=== PATIENT | male | born 1985 | race Caucasian/White ===

== ENCOUNTER 2017-03-15 09:48 | Emergency (ER) | payer OTHER ==
[2017-03-15 09:55] VITALS: BP 133/79; PULSE 83; RESP 16; TEMP 97.6
[2017-03-15] MEDS ORDERED: DIPH,PERTUS(ACELL)TETVAC-LF 0.5 ML VIAL IM ONE (09:59)
--- NOTE | 2017-03-15 10:24 | ED ---
Wound/Laceration HPI - General Chief Complaint: Wound/Laceration Stated Complaint: IHS-Finger Laceration Time Seen by Provider: 03/15/17 09:58 Source: patient, RN notes reviewed Mode of arrival: ambulatory Limitations: no limitations - History of Present Illness Initial Comments: 31-year-old male presents emergency Department chief complaint left hand laceration. Patient states he cut his left hand fifth digit. Patient states that he was trimming a tree while he was up and bucket lift. Patient states that the branch above it his head causing him to Dr. down. Patient states that his hand brushed against the saw. Patient states that he is unsure when his last tetanus was. Patient states she has full range of motion of his left hand fifth digit. Denies any paresthesias. Patient is left-hand dominant. - Related Data Previous Rx's Medication Instructions Recorded Acetaminophen-Codeine 300-30mg 1 each PO Q6H PRN #20 tablet 08/07/15 [Tylenol #3] Ofloxacin 0.3% Ophth Soln [Ocuflox 1 - 2 drops BOTH EYES QID 7 Days 08/07/15 Ophth Soln] Cephalexin [Keflex] 500 mg PO Q6HR #28 cap 03/15/17 Allergies Allergy/AdvReac Type Severity Reaction Status Date / Time No Known Allergies Allergy Verified 03/15/17 09:55 Review of Systems ROS Statement: Those systems with pertinent positive or pertinent negative responses have been documented in the HPI. ROS Other: All systems not noted in ROS Statement are negative. Past Medical History Past Medical History: No Reported History History of Any Multi-Drug Resistant Organisms: None Reported Past Surgical History: No Surgical Hx Reported Past Psychological History: No Psychological Hx Reported Smoking Status: Current every day smoker Past Alcohol Use History: Rare Past Drug Use History: None Reported General Exam Limitations: no limitations General appearance: alert, in no apparent distress Respiratory exam: Present: normal lung sounds bilaterally. Absent: respiratory distress, wheezes, rales, rhonchi, stridor Cardiovascular Exam: Present: regular rate, normal rhythm, normal heart sounds. Absent: systolic murmur, diastolic murmur, rubs, gallop, clicks Extremities exam: Present: other (Left hand fifth digit there are multiple irregular lacerations larges 1 cm with multiple 0.5 cm lacerations with total length of 3 cm patient has no tendon involvement patient full-strength neurovascular intact) Course Vital Signs 03/15/17 09:53 Temperature 97.6 F Pulse Rate 83 Respiratory 16 Rate Blood Pressure 133/79 O2 Sat by Pulse 98 Oximetry Procedures - Laceration Laceration #1 Consent Obtained: verbal consent Site: hand (Left hand fifth digit) Size (cm): 3 (Multiple lacerations) Description: irregular, contaminated Depth: simple, single layer Anesthetic Used: lidocaine 1%, without epi Anesthesia Technique: local infiltration Amount (mls): 4 Pre-repair: wound explored, irrigated extensively, deep structures intact Type of Sutures: nylon Size of Sutures: 4-0 Number of Sutures: 10 Technique: simple, interrupted Patient Tolerated Procedure: well, no complications Medical Decision Making - Medical Decision Making 31-year-old male presented for left hand fourth digit finger lacerations. Patient's lacerations were closed using sutures. Patient tolerated well. Patient will be placed on light duty of left hand and follow-up with workman's comp. Return parameters were discussed Disposition Clinical Impression: Finger laceration Disposition: HOME SELF-CARE Condition: Stable Instructions: Finger Laceration (ED) Additional Instructions: Wash the wound twice daily with soap and water. Have sutures removed in 10 days. Keep the wound clean. Please return to the Emergency Department if symptoms worsen or any other concerns. Prescriptions: Cephalexin [Keflex] 500 mg PO Q6HR #28 cap Referrals: Ric Luna DO [Primary Care Provider] - 1-2 days Time of Disposition: 10:24
== END 2017-03-15 10:32 | disposition home or self-care (01) ==
LOC: EC 09:48
DX: S61.217A Laceration without foreign body of left little finger without damage to nail, initial encounter (principal); Z23 Encounter for immunization; F17.200 Nicotine dependence, unspecified, uncomplicated; W29.3XXA Contact with powered garden and outdoor hand tools and machinery, initial encounter
CPT/HCPCS: 12002; 90471; 90715; 99282

== ENCOUNTER 2017-12-07 21:17 | Emergency (ER) | payer OTHER ==
[2017-12-07] MEDS ORDERED: PROPARACAINE 0.5% OPHTH DROPS 15 ML BTL LEFT EYE STA (21:39)
--- NOTE | 2017-12-07 22:22 | ED ---
Eye Problem HPI - General Chief complaint: Eye Problems Stated complaint: FB/Eye Time Seen by Provider: 12/07/17 21:36 Source: patient, RN notes reviewed Mode of arrival: ambulatory Limitations: no limitations - History of Present Illness Initial comments: This is a 32-year-old male who presents to the emergency department with chief complaint of left eye pain. Patient states that at 9 AM this morning he was grinding metal and felt like a piece of it got stuck in his eye. He states that his eye is painful and red and reports photophobia. Denies any itchiness or vision changes. States that when he woke from a nap the pain was worse so presented to the emergency department. Patient denies any other injuries. Currently rates pain as 3/10. Denies fever, chills, chest pain, shortness of breath, abdominal pain, nausea or vomiting, constipation or diarrhea, dysuria or hematuria, numbness or tingling, headache or vision changes. - Related Data Previous Rx's Medication Instructions Recorded Acetaminophen-Codeine 300-30mg 1 each PO Q6H PRN #20 tablet 08/07/15 [Tylenol #3] Ofloxacin 0.3% Ophth Soln [Ocuflox 1 - 2 drops BOTH EYES QID 7 Days 08/07/15 Ophth Soln] ml Cephalexin [Keflex] 500 mg PO Q6HR #28 cap 03/15/17 Tobramycin 0.3% Ophth Soln [Tobrex 1 drop LEFT EYE Q4H 5 Days 12/07/17 0.3% Ophth Soln] Allergies Allergy/AdvReac Type Severity Reaction Status Date / Time No Known Allergies Allergy Verified 12/07/17 21:27 Review of Systems ROS Statement: Those systems with pertinent positive or pertinent negative responses have been documented in the HPI. ROS Other: All systems not noted in ROS Statement are negative. Past Medical History Past Medical History: No Reported History History of Any Multi-Drug Resistant Organisms: None Reported Past Surgical History: No Surgical Hx Reported Past Psychological History: No Psychological Hx Reported Smoking Status: Current every day smoker Past Alcohol Use History: Rare Past Drug Use History: None Reported General Exam - General Exam Comments Initial Comments: General: Awake and alert, well-developed; in no apparent distress. HEENT: Head atraumatic, normocephalic. Pupils are equal, round and reactive to light. Extraocular movements intact. Large corneal abrasion at approximately 1: 00 and 2:00 in relation to left iris. No evidence of foreign body. Oropharynx moist without erythema or exudate. Neck: Supple. Normal ROM. Cardiovascular: Regular rate and rhythm. No murmurs, rubs or gallops. Chest symmetrical. Respiratory: Lungs clear to auscultation bilaterally. No wheezes, rales or rhonchi. Normal respiratory effort with no use of accessory muscles. Musculoskeletal: Normal ROM, no tenderness bilateral upper and lower extremities. Ambulating normally. Skin: [place], warm and dry without rashes or lesions. Neurological: Alert and oriented x3. CN II-XII grossly intact. Speech is fluent and answers are appropriate. No focal neuro deficits. Psychiatric: Normal mood and affect. No overt signs of depression or anxiety noted. Limitations: no limitations Course Vital Signs 12/07/17 21:28 Temperature 97.8 F Pulse Rate 88 Respiratory 18 Rate Blood Pressure 125/79 O2 Sat by Pulse 99 Oximetry Medical Decision Making - Medical Decision Making This is a 32-year-old male who presents to emergency department with chief complaint of left eye pain and foreign body sensation. Physical examination and fluorescein staining reveal a large corneal abrasion without evidence of a foreign body. I had a fellow PA also examine patient's eye. Patient will be discharged home with a prescription for antibiotic eyedrops. He is provided follow-up information with ophthalmology. Return parameters were discussed. Patient is in agreement voices understanding. All questions were answered. Disposition Clinical Impression: Corneal abrasion Disposition: HOME SELF-CARE Condition: Good Instructions: Corneal Abrasion (ED) Additional Instructions: Please follow up with Dr. Hodgson if pain worsens or there are any vision changes. Please follow up with primary care provider within 1-2 days. Return to emergency department if symptoms should worsen or any concerns arise. Prescriptions: Tobramycin 0.3% Ophth Soln [Tobrex 0.3% Ophth Soln] 1 drop LEFT EYE Q4H 5 Days Referrals: Ric Luna DO [Primary Care Provider] - 1-2 days Nura Hodgson MD [STAFF PHYSICIAN] - 1-2 days Time of Disposition: 22:22
[2017-12-07 22:28] VITALS: BP 134/74; PULSE 87; RESP 20; TEMP 98.3
== END 2017-12-07 22:27 | disposition home or self-care (01) ==
LOC: EC 21:17
DX: S05.02XA Injury of conjunctiva and corneal abrasion without foreign body, left eye, initial encounter (principal); F17.200 Nicotine dependence, unspecified, uncomplicated; X58.XXXA Exposure to other specified factors, initial encounter; Y93.89 Activity, other specified
CPT/HCPCS: 99283

== ENCOUNTER 2019-12-14 20:27 | Emergency (ER) | payer BC, OTHER ==
[2019-12-14 20:39] VITALS: BP 129/68; PULSE 74; RESP 18; TEMP 97.8
[2019-12-14] MEDS ORDERED: BUPIVACAINE (PF) 0.5% 30 ML VIAL MISCELLANE STA (20:41)
[2019-12-14] MEDS ORDERED: PENICILLIN VK 500MG STARTER 4 TAB BTL PO STA (20:41)
[2019-12-14] MEDS ORDERED: ACET/COD 300 MG/30 MG STARTER PACK 6 TAB BTL PO STA (20:41)
--- NOTE | 2019-12-14 20:43 | ED ---
General Adult HPI - General Chief complaint: Dental/Oral Stated complaint: Tooth infection Time Seen by Provider: 12/14/19 20:33 Source: patient Mode of arrival: ambulatory Limitations: no limitations - History of Present Illness Initial comments: 34 year-old male patient presents to the emergency department today for evaluation of left upper dental pain. Patient states has had the pain for the last week. States has been steadily worsening. States he did have reconciled to the tooth one year ago. He denies any swelling or fluid collections in his mouth. Denies fever or chills or denies any trismus or difficulty swallowing. Patient states he did contact the dentist comminuted make an appointment but told him if his symptoms worsen he should see urgent care or emergency department for antibiotics. Patient denies any recent rash, shortness breath, chest pain, abdominal pain, nausea, vomiting, diarrhea, constipation, back pain, numbness, tingling, dizziness, weakness, hematuria, dysuria, urinary urgency, urinary frequency, headache, visual changes, or any other complaints. - Related Data Previous Rx's Medication Instructions Recorded Acetaminophen-Codeine 300-30mg 1 each PO Q6H PRN #20 tablet 08/07/15 [Tylenol #3] Ofloxacin 0.3% Ophth Soln [Ocuflox 1 - 2 drops BOTH EYES QID 7 Days 08/07/15 Ophth Soln] ml Cephalexin [Keflex] 500 mg PO Q6HR #28 cap 03/15/17 Tobramycin 0.3% Ophth Soln [Tobrex 1 drop LEFT EYE Q4H 5 Days 12/07/17 0.3% Ophth Soln] Penicillin V Potassium [Pen Vee K] 500 mg PO Q6H #40 tablet 12/14/19 Allergies Allergy/AdvReac Type Severity Reaction Status Date / Time No Known Allergies Allergy Verified 12/14/19 20:39 Review of Systems ROS Statement: Those systems with pertinent positive or pertinent negative responses have been documented in the HPI. ROS Other: All systems not noted in ROS Statement are negative. Past Medical History Past Medical History: No Reported History History of Any Multi-Drug Resistant Organisms: None Reported Past Surgical History: No Surgical Hx Reported Past Psychological History: No Psychological Hx Reported Smoking Status: Current every day smoker Past Alcohol Use History: Rare Past Drug Use History: None Reported General Exam Limitations: no limitations General appearance: alert, in no apparent distress, other (This is a well- developed, well-nourished adult male patient in no acute distress. Vital signs upon presentation are temperature 97.8F, pulse 74, respirations 18, blood pressure 129/68, pulse ox 99% on room air.) ENT exam: Present: normal exam, normal oropharynx, mucous membranes moist, other (Dentition is intact. There is no surrounding gingival erythema, swelling, or fluid collections.) Neck exam: Present: normal inspection. Absent: tenderness, meningismus, lymphadenopathy Respiratory exam: Present: normal lung sounds bilaterally. Absent: respiratory distress, wheezes, rales, rhonchi, stridor Cardiovascular Exam: Present: regular rate, normal rhythm, normal heart sounds. Absent: systolic murmur, diastolic murmur, rubs, gallop, clicks Neurological exam: Present: alert, oriented X3, CN II-XII intact Psychiatric exam: Present: normal affect, normal mood Skin exam: Present: warm, dry, intact, normal color. Absent: rash Course Vital Signs 12/14/19 20:36 Temperature 97.8 F Pulse Rate 74 Respiratory 18 Rate Blood Pressure 129/68 O2 Sat by Pulse 99 Oximetry Procedures - Nerve Block Consent Obtained: verbal consent Local Anesthetic Used: Marcaine 0.5% Amount of anesthesia used: 3 Side: left Intraoral Nerve Block: superior alveolar Procedure Successful: Yes Complications: none Patient Tolerated Procedure: well, no complications Medical Decision Making - Medical Decision Making 34 year-old male patient presented to the emergency department today for evaluation of dental pain. Physical examination revealed intact dentition with no gingival erythema or hyperplasia. No fluid collection. They did perform an intraoral nerve block which was successful. Patient started on pen VK. He is instructed to follow-up with the dentist for further evaluation as soon as possible. Return parameters discussed in detail. He verbalizes understanding and agrees with this plan. Disposition Clinical Impression: Toothache Disposition: HOME SELF-CARE Condition: Good Instructions (If sedation given, give patient instructions): Toothache (ED) Additional Instructions: Complete antibiotic prescription. Follow-up with the dentist as soon as poss ible for further evaluation. Return to the emergency department immediately for any new, worsening, or concerning symptoms. Prescriptions: Penicillin V Potassium [Pen Vee K] 500 mg PO Q6H #40 tablet Is patient prescribed a controlled substance at d/c from ED?: No Referrals: Ric Luna DO [Primary Care Provider] - 1-2 days Time of Disposition: 20:42
== END 2019-12-14 21:19 | disposition home or self-care (01) ==
LOC: EC 20:27
DX: K08.89 Other specified disorders of teeth and supporting structures (principal); F17.200 Nicotine dependence, unspecified, uncomplicated
CPT/HCPCS: 64400; 99282

== ENCOUNTER 2020-10-08 11:41 | Emergency (ER) | payer BC, OTHER ==
[2020-10-08 12:02] LABS: Basophils # (A) 0.2 k/uL (0-0.2); Basophils % (A) 2 %; Eosinophils # (A) 0.3 k/uL (0-0.7); Eosinophils % (A) 3 %; HCT 45.3 % (39.0-53.0); HGB 15.2 gm/dL (13.0-17.5); Lymphocytes # (A) 3.2 k/uL (1.0-4.8); Lymphocytes % (A) 31 %; MCHC 33.6 g/dL (31.0-37.0); MCV 86.6 fL (80.0-100.0); Mean Platelet Volume 8.6; Monocytes # (A) 0.4 k/uL (0-1.0); Monocytes % (A) 4 %; Neutrophils # (A) 6.2 k/uL (1.3-7.7); Neutrophils % (A) 59 %; Platelet Count 254 k/uL (150-450); RBC 5.23 m/uL (4.30-5.90); RDW 12.4 % (11.5-15.5); WBC 10.4 k/uL (3.8-10.6)
--- NOTE | 2020-10-08 12:12 | P.GSCN ---
History of Present Illness Consult date: 10/08/20 History of present illness: Patient activated as a Level I trauma following a head injury from a tree branch falling onto his head. He was wearing a hard hat. Per ER report, patient had loss of consciousness over 5 minutes and had depressed GCS. He reports headache including right shoulder pain. He has trouble opening his left eye. He denies abdominal pain. He can wiggle his toes, sensation intact for all 4 distal extremities. HEAD: With blood at left parietal, less than 3 cm. PLAN: 1. Pending helm-CT scan for axial load injury. 2. Recommend transfer for intracranial bleed and mental status changes Past Medical History Past Medical History: No Reported History History of Any Multi-Drug Resistant Organisms: None Reported Past Surgical History: No Surgical Hx Reported Past Psychological History: No Psychological Hx Reported Past Alcohol Use History: Rare Past Drug Use History: None Reported Medications and Allergies Home Medications Medication Instructions Recorded Confirmed Type Acetaminophen-Codeine 300-30mg 1 each PO Q6H PRN #20 tablet 08/07/15 Rx [Tylenol #3] Ofloxacin 0.3% Ophth Soln [Ocuflox 1 - 2 drops BOTH EYES QID 7 Days 08/07/15 Rx Ophth Soln] ml Cephalexin [Keflex] 500 mg PO Q6HR #28 cap 03/15/17 Rx Tobramycin 0.3% Ophth Soln [Tobrex 1 drop LEFT EYE Q4H 5 Days 12/07/17 Rx 0.3% Ophth Soln] Penicillin V Potassium [Pen Vee K] 500 mg PO Q6H #40 tablet 12/14/19 Rx Allergies Allergy/AdvReac Type Severity Reaction Status Date / Time No Known Allergies Allergy Verified 12/14/19 20:39 Results - Labs 10/08/20 11:50
[2020-10-08 12:15] LABS: ALT 34 U/L (4-49); AST 37 U/L (17-59); African American GFR (CKD) >90 (>60 ml/min/1.73 sqM); Albumin 4.8 g/dL (3.5-5.0); Alcohol <10 mg/dL; Alkaline Phosphatase 103 U/L (38-126); Anion Gap 7 mmol/L; Blood Urea Nitrogen 13 mg/dL (9-20); Calcium 9.6 mg/dL (8.4-10.2); Carbon Dioxide 24 mmol/L (22-30); Chloride 105 mmol/L (98-107); Creatine Kinase 88 U/L (55-170); Glucose 151 mg/dL (74-99); Non-African American GFR(CKD) >90 (>60 ml/min/1.73 sqM); Potassium 3.7 mmol/L (3.5-5.1); Sodium 136 mmol/L (137-145); Total Bilirubin 0.6 mg/dL (0.2-1.3); Total Protein 7.7 g/dL (6.3-8.2)
--- NOTE | 2020-10-08 12:23 | XR ---
EXAMINATION TYPE: XR pelvis AP view DATE OF EXAM: 10/08/2020 CLINICAL HISTORY: pain TECHNIQUE: Single view the pelvis is submitted. FINDINGS: No evidence for fracture, dislocation or bony lesion. Joint spaces are well-preserved. S I joints appear symmetric. IMPRESSION: 1. No acute fracture or dislocation seen. ICD 10 NO FRACTURE, INITIAL EVALUATION
--- NOTE | 2020-10-08 12:24 | XR ---
EXAMINATION TYPE: XR chest 1V portable DATE OF EXAM: 10/08/2020 COMPARISON: August 22, 2012 HISTORY: Chest pain TECHNIQUE: Single frontal view of the chest is obtained. FINDINGS: Infiltrate or atelectasis right medial lung base. Lung volumes are diminished. No evidence for pneumo thorax. The cardiac silhouette size is within normal limits. The osseous structures are intact. IMPRESSION: 1. Infiltrate or atelectasis right medial lung base. Lung volumes are diminished. No evidence for pn eumothorax.
[2020-10-08] MEDS ORDERED: HYDROmorphone 1 MG/ML 1 ML SYRINGE IVP STA ×3 (12:40→15:01)
[2020-10-08] MEDS ORDERED: PROPARACAINE 0.5% OPHTH DROPS 15 ML BTL LEFT EYE STA (12:58)
[2020-10-08] MEDS ORDERED: PROPARACAINE 0.5% OPHTH DROPS 15 ML BTL ONE (12:58)
--- NOTE | 2020-10-08 13:10 | ED ---
Trauma HPI - General Stated Complaint: [facility] Head Injury Time Seen by Provider: 10/08/20 11:41 - History of Present Illness Initial Comments: The patient is a previously healthy 35-year-old male who presents to the emergency department after he was hit in head with a tree branch. It was reported that the patient had an 8 inch tree branch hit him from a height of approximately 30 feet. Patient was wearing a helmet. He wasn't knocked unconscious for approximate 5 minutes. Upon EMS arrival they thought the patient had an open skull fracture. His GCS was noted to be 13 because he was only responsive to painful stimuli with incomprehensible speech. Because of the open skull fracture noted the patient was called as a priority 1 trauma. He does present and is answering questions appropriately. He endorses right shoulder pain. Denies headache or visual changes at this time. There is notable abrasions to the left occiput. Patient is unable to open his left eye. When pried open patient denies any visual changes. Admits to neck pain. No t horacic or lumbar back pain. No chest pain or shortness of breath. - Related Data Home Medications Medication Instructions Recorded Confirmed levETIRAcetam [Keppra] 500 mg PO Q12HR 10/11/20 10/11/20 methocarbamoL [Robaxin] 500 mg PO Q8H PRN 10/11/20 10/11/20 Previous Rx's Medication Instructions Recorded Famotidine [Pepcid] 20 mg PO BID #30 tablet 10/11/20 Gabapentin [Neurontin] 200 mg PO TID PRN #30 cap 10/11/20 HYDROcodone/APAP 10-325MG [[place] 1 tab PO Q6HR PRN 7 Days #28 tab 10/11/20 10-325] Ibuprofen [Motrin] 400 mg PO Q8HR PRN #30 tab 10/11/20 traMADol HCL [Ultram] 50 mg PO Q8HR PRN 3 Days #30 tab 10/11/20 Allergies Allergy/AdvReac Type Severity Reaction Status Date / Time No Known Allergies Allergy Verified 10/11/20 09:10 Review of Systems ROS Statement: Those systems with pertinent positive or pertinent negative responses have been documented in the HPI. ROS Other: All systems not noted in ROS Statement are negative. Past Medical History Past Medical History: No Reported History History of Any Multi-Drug Resistant Organisms: None Reported Past Surgical History: No Surgical Hx Reported Past Psychological History: No Psychological Hx Reported Past Alcohol Use History: Rare Past Drug Use History: None Reported General Exam General appearance: alert, other (in pain) Head exam: Present: other (abrasion left occiput. ) Eye exam: Present: PERRL, EOMI, conjunctival injection (left ), other (ecchmyosis under left eye. Mild proptosis left eye. Unable to open left eyelid. Globe soft. ) ENT exam: Present: normal exam, mucous membranes moist, TM's normal bilaterally Neck exam: Present: tenderness (C1-C7) Respiratory exam: Present: normal lung sounds bilaterally. Absent: respiratory distress, wheezes, rales, rhonchi, stridor Cardiovascular Exam: Present: regular rate, normal rhythm, normal heart sounds. Absent: systolic murmur, diastolic murmur, rubs, gallop, clicks GI/Abdominal exam: Present: soft, normal bowel sounds. Absent: distended, tenderness, guarding, rebound, rigid Rectal exam: Present: normal inspection, normal rectal tone Extremities exam: Present: normal inspection, full ROM, tenderness (right AC joint), normal capillary refill. Absent: pedal edema, joint swelling, calf tenderness Back exam: Present: normal inspection Neurological exam: Present: alert, oriented X3, CN II-XII intact Psychiatric exam: Present: anxious Course Vital Signs 10/08/20 11:41 Temperature 97.9 F Pulse Rate 77 Respiratory 20 Rate Blood Pressure 107/77 O2 Sat by Pulse 98 Oximetry - Reevaluation(s) Reevaluation #1: Called CT - no reports yet on CT brain. Viewed by myself and notable skull fracture. Notified need studies read KRYSTIN 10/08/20 13:01 Reevaluation #2: Spoke with Dr. Oakley. Will look at images 10/08/20 13:09 Reevaluation #3: Requested update regarding transfer. Transfer center authorization coordinator with [employer]. S till awaiting acceptance 10/08/20 13:50 Reevaluation #4: Dr. Bird accepts 10/08/20 14:10 Reevaluation #5: Called to tell me transfer is refused due to no ICU beds. 10/08/20 14:15 Spoke with Shogren - C7 fracture 10/08/20 14:19 Spoke with Chandrakant Soto in regards to halted transfer. States they are working on finding a bed for the patient. 10/08/20 14:32 Spoke with Merlyn at [facility]. Chandrakant Soto has called [facility] who states will be accepting. Requesting I called Dr. Fritz who is trauma surgeon at [facility]. 10/08/20 14:[address] Fritz who accepted. Requesting i call ER to accept 10/08/20 14:38 Medical Decision Making - Medical Decision Making Upon arrival the patient is promptly placed into trauma bay 1. Patient has an airway that is patent. Bilateral breath sounds. 2+ upper and lower extremity pulses. Disability is assessed and the patient is alert and oriented. Remained in a c-collar. He endorses right shoulder pain. Vitals are obtained and are stable. Patient does have a portable chest and pelvic x-ray performed. He is taken to CT. When he returns I do a thorough exam of the patient's eye including ocular pressures which are noted to be 20, 19 and 17. Visual acuity is performed which demonstrates 20/30 vision each eye and 20/25 bilaterally. Patient was originally given 100 mg of fentanyl. He does receive 2 subsequent doses of Dilaudid. Images reviewed by myself and demonstrate pneumocephalus. At this time I discussed transfer with Chandrakant Soto requesting information regarding the transfer process. They state that they are accepting transfer. Spoke with Dr. Oakley in regards to the patient's computed tomography scan. He does view them and states that there is nothing further to do regarding his eye. I do attempt to initiate transfer after I discuss the case with Dr. Russo in regards to CT findings at 2 pm. [facility] Soto does accept transfer of the patient after speaking with trauma surgeon Dr. Bird. They called back after 10 minutes and refuse transfer due to no ICU beds. The trauma team at [facility] has spoken with the trauma surgeon at [facility], Dr. Fritz. They state I should call him for transfer. I spoke with Dr. Fritz the trauma surgeon who accepts transfer. I then spoke with Dr. Julian who is the ER doctor who accepts transfer. Patient will then be transferred to [facility]. Patient is sent priority one in hemodynamically stable condition. - Lab Data Result diagrams: 10/08/20 11:50 10/08/20 11:50 Lab Results 10/08/20 10/08/20 10/08/20 Range/Units 11:45 11:50 11:50 WBC 10.4 (3.8-10.6) k/uL RBC 5.23 (4.30-5.90) m/uL Hgb 15.2 (13.0-17.5) gm/dL Hct 45.3 (39.0-53.0) % MCV 86.6 (80.0-100.0) fL MCH 29.0 (25.0-35.0) pg MCHC 33.6 (31.0-37.0) g/dL RDW 12.4 (11.5-15.5) % Plt Count 254 (150-450) k/uL MPV 8.6 Neutrophils % 59 % Lymphocytes % 31 % Monocytes % 4 % Eosinophils % 3 % Basophils % 2 % Neutrophils # 6.2 (1.3-7.7) k/uL Lymphocytes # 3.2 (1.0-4.8) k/uL Monocytes # 0.4 (0-1.0) k/uL Eosinophils # 0.3 (0-0.7) k/uL Basophils # 0.2 (0-0.2) k/uL PT 10.0 (9.0-12.0) sec INR 1.0 (<1.2) APTT 23.0 (22.0-30.0) sec Sodium (137-145) mmol/L Potassium (3.5-5.1) mmol/L Chloride (98-107) mmol/L Carbon Dioxide (22-30) mmol/L Anion Gap mmol/L BUN (9-20) mg/dL Creatinine (0.66-1.25) mg/dL Est GFR (CKD-EPI)AfAm (>60 ml/min/1.73 sqM) Est GFR (CKD-EPI)NonAf (>60 ml/min/1.73 sqM) Glucose (74-99) mg/dL Calcium (8.4-10.2) mg/dL Total Bilirubin (0.2-1.3) mg/dL AST (17-59) U/L ALT (4-49) U/L Alkaline Phosphatase (38-126) U/L Creatine Kinase (55-170) U/L Troponin I (0.000-0.034) ng/mL Total Protein (6.3-8.2) g/dL Albumin (3.5-5.0) g/dL Serum Alcohol mg/dL Blood Type Blood Type Confirm O Positive Blood Type Recheck Bld Type Recheck Status Antibody Screen Spec Expiration Date 10/08/20 10/08/20 10/08/20 Range/Units 11:50 11:50 11:50 WBC (3.8-10.6) k/uL RBC (4.30-5.90) m/uL Hgb (13.0-17.5) gm/dL Hct (39.0-53.0) % MCV (80.0-100.0) fL MCH (25.0-35.0) pg MCHC (31.0-37.0) g/dL RDW (11.5-15.5) % Plt Count (150-450) k/uL MPV Neutrophils % % Lymphocytes % % Monocytes % % Eosinophils % % Basophils % % Neutrophils # (1.3-7.7) k/uL Lymphocytes # (1.0-4.8) k/uL Monocytes # (0-1.0) k/uL Eosinophils # (0-0.7) k/uL Basophils # (0-0.2) k/uL PT (9.0-12.0) sec INR (<1.2) APTT (22.0-30.0) sec Sodium 136 L (137-145) mmol/L Potassium 3.7 (3.5-5.1) mmol/L Chloride 105 (98-107) mmol/L Carbon Dioxide 24 (22-30) mmol/L Anion Gap 7 mmol/L BUN 13 (9-20) mg/dL Creatinine 0.71 (0.66-1.25) mg/dL Est GFR (CKD-EPI)AfAm >90 (>60 ml/min/1.73 sqM) Est GFR (CKD-EPI)NonAf >90 (>60 ml/min/1.73 sqM) Glucose 151 H (74-99) mg/dL Calcium 9.6 (8.4-10.2) mg/dL Total Bilirubin 0.6 (0.2-1.3) mg/dL AST 37 (17-59) U/L ALT 34 (4-49) U/L Alkaline Phosphatase 103 (38-126) U/L Creatine Kinase 88 (55-170) U/L Troponin I <0.012 (0.000-0.034) ng/mL Total Protein 7.7 (6.3-8.2) g/dL Albumin 4.8 (3.5-5.0) g/dL Serum Alcohol <10 mg/dL Blood Type O Positive Blood Type Confirm Blood Type Recheck No Previous Record Bld Type Recheck Status CABO Indicated Antibody Screen NEGATIVE Spec Expiration Date 10/11/2020 - 5592 - EKG Data EKG Comments: EKG demonstrates normal sinus rhythm with sinus arrhythmia. Ventricular rate 66. IA interval 158. QRS 100. QTC 444. ST elevation in the inferior leads. No cervical changes. Critical Care Time Critical Care Time: Yes Critical Care Time: 50 minutes Disposition Clinical Impression: Skull fracture Disposition: OTHER INSTITUTION NOT DEFINED Condition: Serious Is patient prescribed a controlled substance at d/c from ED?: No Referrals: None,Stated [Primary Care Provider] - 1-2 days - Out of Hospital Transfer - Req. Specs Out of Hospital Transfer - Requested Specifics: Other Emergency Center ([facility]
[2020-10-08 13:12] VITALS: BP 107/77; PULSE 77; RESP 20; TEMP 97.9
[2020-10-08] MEDS ORDERED: DIPH,PERTUS(ACELL)TETVAC-LF 0.5 ML VIAL IM ONE (13:13)
--- NOTE | 2020-10-08 13:21 | CT ---
EXAMINATION TYPE: CT ChestAbdPelvis w con DATE OF EXAM: 10/08/2020 INDICATION: Hit by tree limb well trimming a tree COMPARISON: None CT DLP: 1032.4 mGycm CONTRAST: 100 mL Isovue-300. Her graft TECHNIQUE: Axial images at 5 mm thick sections. Reconstructed images in the coronal plane. Delayed images through the kidneys. FINDINGS: CT CHEST: Portion of the thyroid visualized is normal. Some mild infiltrate in the posterior superior left lung may be present. Some mild compressive atelec tasis the right lung base may be present. No pneumothorax is evident. No enlarged mediastinal or hilar adenopathy is evident. The ascending aorta diameter at the level of the main pulmonary artery is 3.7 cm. The main pulmonary artery diameter at the bifurcation is 3.[address] ABDOMEN: Liver: Normal Spleen: Normal Pancreas: Normal Adrenal glands: The adrenal glands are normal. Gallbladder: Normal Kidneys: No masses are evident. No hydronephrosis is present. No cysts are present. No hydronephro sis is evident Aorta: Normal Inferior vena cava: Normal. CT PELVIS: Loops of bowel within the abdomen and pelvis are normal. The studies performed without oral contr ast limiting bowel evaluation. Appendix: Normal as visualized. Urinary bladder: Normal. Genitourinary structures: Prostate is normal Osseous structures: No suspicious lytic or sclerotic lesions. No acute fractures are evident. IMPRESSIONS: 1. Mild superior left upper lobe infiltrate. Correlate for atelectasis. 2. No acute posttraumatic changes.
--- NOTE | 2020-10-08 13:21 | XR ---
EXAMINATION TYPE: XR shoulder complete RT DATE OF EXAM: 10/08/2020 CLINICAL HISTORY: pain TECHNIQUE: Three views of the right shoulder are obtained. COMPARISON: None FINDINGS: There is no acute fracture/dislocation evident. The acromioclavicular and glenohumeral sushma int spaces appear within normal limits. The visualized ribs are intact and unremarkable. IMPRESSION: 1. There is no acute fracture or dislocation. ICD 10 NO FRACTURE, INITIAL EVALUATION
--- NOTE | 2020-10-08 13:28 | CT ---
CT thoracic lumbar spine with contrast HISTORY: Trauma and pain Helical acquisition obtained through the thoracic and lumbar spine following 100 cc Isovue-300. Autom ated exposure control for dose reduction. DLP 1032.[address] chest abdomen pelvis same date. Thoracic and lumbar vertebral bodies are intact. Patient normal height, alignment, and bone mineraliz ation. Disc spaces are maintained. No paraspinal hematoma evident. IMPRESSION: No acute fracture or subluxation.
[2020-10-08] MEDS ORDERED: fentaNYL (PF) 50 MCG/ML 2 ML AMP IVP STA (13:37)
--- NOTE | 2020-10-08 13:43 | CT ---
EXAMINATION TYPE: CT orbits wo con DATE OF EXAM: 10/08/2020 COMPARISON: CT brain same date HISTORY: Trauma and pain CT DLP: 1369.9 mGycm Automated exposure control for dose reduction was used. Helical imaging through the orbits. FINDINGS: Air is noted within the left orbit. Comminuted lateral orbital wall fractures present on the left wit h some displacement, fracture is noted in the calvarium just posterior and lateral to the left orbit without significant displacement, fracture line extends along the left frontal bone laterally towards the convexity as noted on head CT, small subdural hematoma is noted on the left.. There is small are a of pneumocephalus present at the lateral margin of the left frontal lobe near the site of fracture. Air present within the soft tissues at the temporalis muscle on the left as well as anterior to the left globe. Inferior left orbital wall fracture extends towards the nasal bone medially, fracture of the nasal bone also present more superiorly at the level of the left orbit, coronal image 14. Buckli ng of the nasal bone is present, coronal image 17 Right maxillary sinus and left maxillary sinus show s a minimally displaced fractures. There is air-fluid level within the right maxillary sinus possibly representing hemorrhage. Mucosal disease present in the left maxillary sinus. There is near complete opacification of the sphenoid bone. Fracture line extends posteriorly through the base of the skull within the clivus and courses towards the base of the clivus, no significant displacement. Fracture l ine is present extending through the sphenoid sinus inferior margin as well as the posterior ethmoid air cells on the left, inflammatory changes or hemorrhage present at these levels. IMPRESSION: MULTIPLE CALVARIAL AND FACIAL BONE FRACTURES. SKULL BASE FRACTURE IS TOWARDS THE MIDLINE. INTRACRANIA L HEMORRHAGE, ADDITIONAL FINDINGS ABOVE.
--- NOTE | 2020-10-08 14:01 | CT ---
EXAMINATION TYPE: CT brain wo con DATE OF EXAM: 10/08/2020 COMPARISON: None INDICATION: Trauma, hit by falling limb while trimming tree DLP: Unavailable mGycm, Automated exposure control for dose reduction was used. CONTRAST: None CT of the brain is performed utilizing 3 mm thick sections through the posterior fossa and 3 mm thick sections through the remaining calvarium. Study is performed within 24 hours of arrival to the hosp ital. There is a minimal left subdural hematoma measuring a depth of 0.4 cm. Small amount of free air is ad jacent to the left temporal fracture. A minimal anterior and medial subdural hematoma within the righ t middle cranial fossa is present. Tiny amount of free air is under the medial aspect of the middle c ranial fossa. No significant mass effect is evident. No midline shift is evident. No subfalcine herniation is evide nt. Ventricles and sulci appear within normal limits. Third ventricle is midline. Fourth ventricle is mid line. Quadrigeminal plate and ambient cistern are patent. There may be some diminished visualization of sulci along the right parietal-occipital region. This may be projectional. Suspicious underlying a bnormality is not identified. There is a basilar skull fracture in the midline within the clivus. Example image series 204 image 10 . This extends from the posterior fossa to the sphenoid sinus and through the skull base to the left inferior orbital fissure. Multiple fractures are along the greater wing of the sphenoid with air with in the left orbit. There is a fracture through the sphenoid with extension into the left middle crani al fossa. A left temporal fracture extends towards the vertex. Small amount of adjacent air to this f racture is present intracranially and extracranially. There is a right anterior maxillary wall fractu re. No mass lesion is evident. No acute infarcts are evident. Mastoid air cells appear clear. No fluid within the mastoid air cells is evident. Middle ears are zack ar. There is opacification of the left sphenoid sinus. This has some hyperdensity which may be some a cute hemorrhage. Fluid fills the posterior ethmoid air cells. There is an air-fluid level within the right maxillary sinus. Report was called to Dr. Sanches by Dr. Lopez by telephone 1358 hours 10/08/2020 IMPRESSIONS: 1. Small subdural hematomas within the left middle cranial fossa and left parietal region. These michelle ve a depth of 0.4 cm each. 2. Basilar skull fracture through the mid clivus. Additional calvarial fractures include left tempora l and left sphenoid bones with extension into the calvarium and left middle cranial fossa.
--- NOTE | 2020-10-08 14:23 | CT ---
EXAMINATION TYPE: CT cervical spine wo con DATE OF EXAM: 10/08/2020 COMPARISON: None HISTORY: Trauma hit by falling tree limb CT DLP: 566.5 mGycm CONTRAST: None CT of the cervical spine is performed in the axial plane at 2 mm thick sections. Reconstructed image s in the coronal, and sagittal plane are reviewed on the computer. The patient's basilar skull fracture within the clivus is evident. Additional fractures within the ca lvarium and facial bones are out of the [id number]. There is opacification of the right maxillary sinus and sphenoid sinus. Cervical spine: The dens is towards the right side joint space of C1. A C1 ring fracture however is n ot identified. There is a fracture of the left lamina just posterior to the facet on the left-hand side. Mid right l marilee fracture at C7 is present. Vertebral body alignment is normal. Disc heights are preserved. Vertebral body heights are preserved. No spinal canal stenosis is evident No neural foraminal stenosis is evident. Report was called to Dr. Sanches by Dr. Lopez by telephone [id number] hours 10/08/2020. IMPRESSIONS: 1. Fracture of the proximal left in the mid right C7 lamina. 2. The dens is placed more medial towards the right C1 vertebral body within the left. A C1 fracture however is not identified. May has some minimal shift towards the midline from the right on the coron al projection area
== END 2020-10-08 15:15 | disposition other institution (70) ==
LOC: EC 11:41
DX: S02.102A Fracture of base of skull, left side, initial encounter for closed fracture (principal); M25.511 Pain in right shoulder; Z23 Encounter for immunization; Z79.899 Other long term (current) drug therapy; W20.8XXA Other cause of strike by thrown, projected or falling object, initial encounter
CPT/HCPCS: 93005; 86900; 86901; 80053; 82550; 84484; 85025; 85610; 85730; 86850; 80320; 72170; 73030; 71045; 72129; 72125; 72132; 70450; 71260; 70480; 74177; 90715; 99291; 96365; 96375 ×2; 96376; 90471; L3670; J0690; J3010; J1170; Q9967

== ENCOUNTER 2020-10-10 23:54 | Observation (INO) | payer OTHER ==
--- NOTE | 2020-10-11 00:19 | ED ---
Recheck HPI - General Chief Complaint: Recheck/Abnormal Lab/Rx Stated Complaint: pain,revisit Time Seen by Provider: 10/11/20 00:13 Source: patient, RN notes reviewed, old records reviewed Mode of arrival: ambulatory Limitations: no limitations - History of Present Illness Initial Comments: This is a 35-year-old male DF for evaluation patient who presents for evaluation regards to severe pain patient was recently involving significant traumatic injury involving multiple fractures including skull fracture facial fractures and a cervical spine fracture. Patient was discharged from [facility] today and his been uncomfortable at home and unable control his pain MD Complaint: other (Recheck for severe pain) -: hour(s) Returns Today for: persistent/worsening pain related to initial visit Symptoms Since Prior Visit: worsening pain Associated Symptoms: none Treatments Prior to Arrival: Given Pain Meds on - Related Data Home Medications Medication Instructions Recorded Confirmed No Known Home Medications 10/08/20 10/08/20 Allergies Allergy/AdvReac Type Severity Reaction Status Date / Time No Known Allergies Allergy Verified 10/11/20 00:11 Review of Systems ROS Statement: Those systems with pertinent positive or pertinent negative responses have been documented in the HPI. ROS Other: All systems not noted in ROS Statement are negative. Past Medical History Past Medical History: No Reported History Additional Past Medical History / Comment(s): compressed skull fx. pt was seen here on 10-08-[address] Sanches for a head injury secondary to a tree branch falling on his head. pt was sent to [facility] and was discharged today 10-11-20. History of Any Multi-Drug Resistant Organisms: None Reported Past Surgical History: No Surgical Hx Reported Past Psychological History: No Psychological Hx Reported Smoking Status: Never smoker Past Alcohol Use History: Rare Past Drug Use History: None Reported General Exam - General Exam Comments Initial Comments: Patient does have collar in place as well as sling Limitations: no limitations General appearance: alert, in no apparent distress Head exam: Present: atraumatic, normocephalic, normal inspection Eye exam: Present: normal appearance, PERRL, EOMI. Absent: scleral icterus, conjunctival injection, periorbital swelling ENT exam: Present: normal exam, mucous membranes moist Neck exam: Present: normal inspection. Absent: tenderness, meningismus, l ymphadenopathy Respiratory exam: Present: normal lung sounds bilaterally. Absent: respiratory distress, wheezes, rales, rhonchi, stridor Cardiovascular Exam: Present: regular rate, normal rhythm, normal heart sounds. Absent: systolic murmur, diastolic murmur, rubs, gallop, clicks GI/Abdominal exam: Present: soft, normal bowel sounds. Absent: distended, tenderness, guarding, rebound, rigid Extremities exam: Present: normal inspection, full ROM, normal capillary refill. Absent: tenderness, pedal edema, joint swelling, calf tenderness Back exam: Present: normal inspection Neurological exam: Present: alert, oriented X3, CN II-XII intact Psychiatric exam: Present: normal affect, normal mood Skin exam: Present: warm, dry, intact, normal color. Absent: rash Course Vital Signs 10/11/20 00:04 Temperature 97.2 F L Pulse Rate 84 Respiratory 16 Rate Blood Pressure 140/93 - Reevaluation(s) Reevaluation #1: 10/11/20 02:16 Medical records reviewed 10/11/20 02:16 Prior ER visit images and scanning, and transfer note are reviewed Reevaluation #2: 10/11/20 02:17 Patient does have pain control currently Reevaluation #3: 10/11/20 02:17 Patient spoken with regarding findings, requestioned, patient does not feel couple with discharge as he is still in severe pain Medical Decision Making - Medical Decision Making 35 male to the ER with severe pain post significant somatic injury of multiple fractures, patient be admitted for intractable pain - Lab Data Result diagrams: 10/11/20 00:45 10/11/20 00:45 Lab Results 10/11/20 10/11/20 10/11/20 Range/Units 00:45 00:45 00:45 WBC 13.2 H (3.8-10.6) k/uL RBC 5.29 (4.30-5.90) m/uL Hgb 15.5 (13.0-17.5) gm/dL Hct 45.3 (39.0-53.0) % MCV 85.6 (80.0-100.0) fL MCH 29.4 (25.0-35.0) pg MCHC 34.3 (31.0-37.0) g/dL RDW 12.3 (11.5-15.5) % Plt Count 235 (150-450) k/uL MPV 8.6 Neutrophils % 73 % Lymphocytes % 18 % Monocytes % 5 % Eosinophils % 1 % Basophils % 1 % Neutrophils # 9.7 H (1.3-7.7) k/uL Lymphocytes # 2.3 (1.0-4.8) k/uL Monocytes # 0.6 (0-1.0) k/uL Eosinophils # 0.1 (0-0.7) k/uL Basophils # 0.2 (0-0.2) k/uL PT 9.7 (9.0-12.0) sec INR 0.9 (<1.2) APTT 27.0 (22.0-30.0) sec Sodium (137-145) mmol/L Potassium (3.5-5.1) mmol/L Chloride (98-107) mmol/L Carbon Dioxide (22-30) mmol/L Anion Gap mmol/L BUN (9-20) mg/dL Creatinine (0.66-1.25) mg/dL Est GFR (CKD-EPI)AfAm (>60 ml/min/1.73 sqM) Est GFR (CKD-EPI)NonAf (>60 ml/min/1.73 sqM) Glucose (74-99) mg/dL Plasma Lactic Acid Johnnie (0.7-2.0) mmol/L Calcium (8.4-10.2) mg/dL Phosphorus (2.5-4.5) mg/dL Magnesium (1.6-2.3) mg/dL Total Bilirubin (0.2-1.3) mg/dL AST (17-59) U/L ALT (4-49) U/L Alkaline Phosphatase (38-126) U/L Creatine Kinase (55-170) U/L Troponin I (0.000-0.034) ng/mL Total Protein (6.3-8.2) g/dL Albumin (3.5-5.0) g/dL Urine Color Yellow Urine Appearance Clear (Clear) Urine pH 6.5 (5.0-8.0) Ur Specific [place] 1.012 (1.001-1.035) Urine Protein Negative (Negative) Urine Glucose (UA) Negative (Negative) Urine Ketones 1+ H (Negative) Urine Blood Negative (Negative) Urine Nitrite Negative (Negative) Urine Bilirubin Negative (Negative) Urine Urobilinogen <2.0 (<2.0) mg/dL Ur Leukocyte Esterase Negative (Negative) 10/11/20 10/11/20 10/11/20 Range/Units 00:45 00:45 00:45 WBC (3.8-10.6) k/uL RBC (4.30-5.90) m/uL Hgb (13.0-17.5) gm/dL Hct (39.0-53.0) % MCV (80.0-100.0) fL MCH (25.0-35.0) pg MCHC (31.0-37.0) g/dL RDW (11.5-15.5) % Plt Count (150-450) k/uL MPV Neutrophils % % Lymphocytes % % Monocytes % % Eosinophils % % Basophils % % Neutrophils # (1.3-7.7) k/uL Lymphocytes # (1.0-4.8) k/uL Monocytes # (0-1.0) k/uL Eosinophils # (0-0.7) k/uL Basophils # (0-0.2) k/uL PT (9.0-12.0) sec INR (<1.2) APTT (22.0-30.0) sec Sodium 135 L (137-145) mmol/L Potassium 4.3 (3.5-5.1) mmol/L Chloride 100 (98-107) mmol/L Carbon Dioxide 26 (22-30) mmol/L Anion Gap 9 mmol/L BUN 10 (9-20) mg/dL Creatinine 0.61 L (0.66-1.25) mg/dL Est GFR (CKD-EPI)AfAm >90 (>60 ml/min/1.73 sqM) Est GFR (CKD-EPI)NonAf >90 (>60 ml/min/1.73 sqM) Glucose 118 H (74-99) mg/dL Plasma Lactic Acid Johnnie 0.9 (0.7-2.0) mmol/L Calcium 10.2 (8.4-10.2) mg/dL Phosphorus 4.0 (2.5-4.5) mg/dL Magnesium 1.9 (1.6-2.3) mg/dL Total Bilirubin 0.7 (0.2-1.3) mg/dL AST 22 (17-59) U/L ALT 22 (4-49) U/L Alkaline Phosphatase 89 (38-126) U/L Creatine Kinase 43 L (55-170) U/L Troponin I <0.012 (0.000-0.034) ng/mL Total Protein 8.3 H (6.3-8.2) g/dL Albumin 5.0 (3.5-5.0) g/dL Urine Color Urine Appearance (Clear) Urine pH (5.0-8.0) Ur Specific [place] (1.001-1.035) Urine Protein (Negative) Urine Glucose (UA) (Negative) Urine Ketones (Negative) Urine Blood (Negative) Urine Nitrite (Negative) Urine Bilirubin (Negative) Urine Urobilinogen (<2.0) mg/dL Ur Leukocyte Esterase (Negative) - EKG Data -: EKG Interpreted by Me (EKG shows nsr 78 OK 140 QRS 86 QTc 410) Disposition Clinical Impression: Multiple fractures, Intractable pain Disposition: ADMITTED IP TO [facility] Condition: Good Is patient prescribed a controlled substance at d/c from ED?: No
[2020-10-11] MEDS ORDERED: SODIUM CHLORIDE 0.9% 1,000 ML IV STA ×2 (00:29)
[2020-10-11] MEDS ORDERED: SODIUM CHLORIDE 0.9% 500 ML 500 ML IV STA (00:29)
[2020-10-11] MEDS ORDERED: HYDROmorphone 1 MG/ML 1 ML SYRINGE IVP STA (00:29)
[2020-10-11 00:59] LABS: Appearance,Urine Clear (Clear); Bilirubin,Urine Negative (Negative); Blood,Urine Negative (Negative); Color,Urine Yellow; Glucose,Urine (UA) Negative (Negative); Ketones,Urine 1+ (Negative); Leukocyte Esterase,Urine Negative (Negative); Nitrite,Urine Negative (Negative); PH, Urine 6.5 (5.0-8.0); Protein,Urine Negative (Negative); Specific Gravity,Urine 1.012 (1.001-1.035); Urobilinogen,Urine <2.0 mg/dL (<2.0)
[2020-10-11 01:00] LABS: Basophils # (A) 0.2 k/uL (0-0.2); Basophils % (A) 1 %; Eosinophils # (A) 0.1 k/uL (0-0.7); Eosinophils % (A) 1 %; HCT 45.3 % (39.0-53.0); HGB 15.5 gm/dL (13.0-17.5); Lymphocytes # (A) 2.3 k/uL (1.0-4.8); Lymphocytes % (A) 18 %; MCH 29.4 pg (25.0-35.0); MCHC 34.3 g/dL (31.0-37.0); MCV 85.6 fL (80.0-100.0); Mean Platelet Volume 8.6; Monocytes # (A) 0.6 k/uL (0-1.0); Monocytes % (A) 5 %; Neutrophils # (A) 9.7 k/uL (1.3-7.7); Neutrophils % (A) 73 %; Platelet Count 235 k/uL (150-450); RBC 5.29 m/uL (4.30-5.90); RDW 12.3 % (11.5-15.5); WBC 13.2 k/uL (3.8-10.6)
[2020-10-11 01:10] LABS: ALT 22 U/L (4-49); AST 22 U/L (17-59); African American GFR (CKD) >90 (>60 ml/min/1.73 sqM); Alkaline Phosphatase 89 U/L (38-126); Anion Gap 9 mmol/L; Blood Urea Nitrogen 10 mg/dL (9-20); Calcium 10.2 mg/dL (8.4-10.2); Carbon Dioxide 26 mmol/L (22-30); Chloride 100 mmol/L (98-107); Creatine Kinase 43 U/L (55-170); Glucose 118 mg/dL (74-99); INR 0.9 (<1.2); Magnesium 1.9 mg/dL (1.6-2.3); Non-African American GFR(CKD) >90 (>60 ml/min/1.73 sqM); Potassium 4.3 mmol/L (3.5-5.1); Prothrombin Time 9.7 sec (9.0-12.0); Sodium 135 mmol/L (137-145); Total Bilirubin 0.7 mg/dL (0.2-1.3); Total Protein 8.3 g/dL (6.3-8.2)
[2020-10-11] MEDS ORDERED: LORazepam 2 MG/ML INJ IV PRN (01:34)
[2020-10-11] MEDS ORDERED: DEXTROSE 5%-0.45% NACL 1,000 ML IV ONE (01:34)
[2020-10-11 02:36] VITALS: RESP 16
[2020-10-11] MEDS: HYDROmorphone 1 MG/ML 1 ML SYRINGE IVP PRN ×2 (06:16→11:08)
[2020-10-11 09:05] VITALS: BP 131/82; PULSE 65; TEMP 98.4
[2020-10-11] MEDS ORDERED: methocarbamoL 500 MG TAB PO PRN (11:19)
[2020-10-11] MEDS ORDERED: HYDROcodone/APAP 5-325MG 1 EACH TAB PO PRN (11:19)
[2020-10-11] MEDS ORDERED: GABAPENTIN 100 MG CAP PO PRN ×2 (11:19→11:28)
[2020-10-11] MEDS ORDERED: HYDROcodone/APAP 10-325MG 1 EACH TAB PO PRN (11:27)
[2020-10-11] MEDS ORDERED: levETIRAcetam 500 MG TAB PO SCH (11:30)
--- NOTE | 2020-10-11 12:55 | P.HPIM ---
History of Present Illness 35-year-old male DF for evaluation patient who presents for evaluation regards to severe pain patient was recently involving significant traumatic injury involving multiple fractures including skull fracture facial fractures and a c ervical spine fracture. Patient was discharged from [facility] today and his been uncomfortable at home and unable control his pain. Patient was started on Dilaudid which significantly improved her pain here. Patient was only given 5 mg of Ezel along with 100 mg of gabapentin along with a probably normal. Review of Systems REVIEW OF SYSTEMS: CONSTITUTIONAL: No fever, no malaise, no fatigue. HEENT: No recent visual problems or hearing problems. Denied any sore throat. CARDIOVASCULAR: No chest pain, orthopnea, PND, no palpitations, no syncope. PULMONARY: No shortness of breath, no cough, no hemoptysis. GASTROINTESTINAL: No diarrhea, no nausea, no vomiting, no abdominal pain. NEUROLOGICAL: No headaches, no weakness, no numbness. HEMATOLOGICAL: Denies any bleeding or petechiae. GENITOURINARY: Denies any burning micturition, frequency, or urgency. MUSCULOSKELETAL/RHEUMATOLOGICAL: Denies any joint pain, swelling, or any muscle pain. ENDOCRINE: Denies any polyuria or polydipsia. The rest of the 14-point review of systems is negative. Past Medical History Past Medical History: No Reported History Additional Past Medical History / Comment(s): compressed skull fx. pt was seen here on 10-08-[address] Sanches for a head injury secondary to a tree branch falling on his head. pt was sent to [facility] and was discharged today 10-11-20. History of Any Multi-Drug Resistant Organisms: None Reported Past Surgical History: No Surgical Hx Reported Past Psychological History: No Psychological Hx Reported Smoking Status: Current every day smoker Past Alcohol Use History: Rare Past Drug Use History: None Reported Medications and Allergies Home Medications Medication Instructions Recorded Confirmed Type Famotidine [Pepcid] 20 mg PO BID #30 tablet 10/11/20 Rx Gabapentin [Neurontin] 200 mg PO TID PRN #30 cap 10/11/20 Rx HYDROcodone/APAP 10-325MG [Ezel 1 tab PO Q6HR PRN 7 Days #28 tab 10/11/20 Rx 10-325] Ibuprofen [Motrin] 400 mg PO Q8HR PRN #30 tab 10/11/20 Rx levETIRAcetam [Keppra] 500 mg PO Q12HR 10/11/20 10/11/20 History methocarbamoL [Robaxin] 500 mg PO Q8H PRN 10/11/20 10/11/20 History traMADol HCL [Ultram] 50 mg PO Q8HR PRN 3 Days #30 tab 10/11/20 Rx Allergies Allergy/AdvReac Type Severity Reaction Status Date / Time No Known Allergies Allergy Verified 10/11/20 09:10 Physical Exam Vitals: Vital Signs Temp Pulse Pulse Resp BP BP Pulse Ox 10/11/20 09:00 98.4 F 65 16 131/82 97 10/11/20 02:44 16 10/11/20 02:20 97.4 F L 79 16 98 10/11/20 02:06 98.1 F 80 18 148/90 98 10/11/20 00:04 97.2 F L 84 16 140/93 Intake and Output 10/10/20 10/11/20 10/11/20 22:59 06:59 14:59 Intake Total 540 100 Balance 540 100 Intake: Oral 540 100 Other: Voiding Method Toilet Toilet Weight 90.718 kg PHYSICAL EXAMINATION: GENERAL: The patient is alert and oriented x3, not in any acute distress. Well developed, well nourished. HEENT: Pupils are round and equally reacting to light. EOMI. No scleral icterus. No conjunctival pallor. Normocephalic, atraumatic. No pharyngeal erythema. No thyromegaly. CARDIOVASCULAR: S1 and S2 present. No murmurs, rubs, or gallops. PULMONARY: Chest is clear to auscultation, no wheezing or crackles. ABDOMEN: Soft, nontender, nondistended, normoactive bowel sounds. No palpable organomegaly. MUSCULOSKELETAL: No joint swelling or deformity. She and has a hard collar over his neck and patient has a right arm sling EXTREMITIES: No cyanosis, clubbing, or pedal edema. NEUROLOGICAL: Gross neurological examination did not reveal any focal deficits. SKIN: No rashes. Results CBC & Chem 7: 10/11/20 00:45 10/11/20 00:45 Labs: Abnormal Lab Results - Last 24 Hours (Table) 10/11/20 10/11/20 10/11/20 Range/Units 00:45 00:45 00:45 WBC 13.2 H (3.8-10.6) k/uL Neutrophils # 9.7 H (1.3-7.7) k/uL Sodium 135 L (137-145) mmol/L Creatinine 0.61 L (0.66-1.25) mg/dL Glucose 118 H (74-99) mg/dL Creatine Kinase 43 L (55-170) U/L Total Protein 8.3 H (6.3-8.2) g/dL Urine Ketones 1+ H (Negative) Assessment and Plan Plan: Pain management: Patient is status post discharge from [facility] today morning after he was admitted to trauma services there and was treated for a facial fracture cervical spine fracture. We will increase the dose of Ezel to 10 mg patient will be discharged on tramadol alternating with of the redness 8 like ibuprofen and will also increase the dose of gabapentin. Patient will be discharged today with these changes. Patient will continue his robunol unable to verify MAPS -Leukocytosis reactive in nature. -Nicotine use: Counseling was provided
--- NOTE | 2020-10-11 12:56 | P.DS ---
Providers Date of admission: 10/11/20 01:34 Attending physician: Haider Butler Primary care physician: Stated None Hospital Course: Physical from [facility] for further details Patient Condition at Discharge: Good Plan - Discharge Summary New Discharge Prescriptions: New Gabapentin [Neurontin] 200 mg PO TID PRN #30 cap PRN Reason: Pain HYDROcodone/APAP 10-325MG [[place] 10-325] 1 tab PO Q6HR PRN 7 Days #28 tab PRN Reason: Pain traMADol HCL [Ultram] 50 mg PO Q8HR PRN 3 Days #30 tab PRN Reason: Pain Ibuprofen [Motrin] 400 mg PO Q8HR PRN #30 tab PRN Reason: Pain Famotidine [Pepcid] 20 mg PO BID #30 tablet Discontinued HYDROcodone/APAP 5-325MG [[place] 5-325] 1 tab PO Q6H PRN PRN Reason: Pain Gabapentin [Neurontin] 100 mg PO Q8H PRN PRN Reason: Pain No Action methocarbamoL [Robaxin] 500 mg PO Q8H PRN PRN Reason: Pain levETIRAcetam [Keppra] 500 mg PO Q12HR Discharge Medication List Famotidine [Pepcid] 20 mg PO BID #30 tablet 10/11/20 [Rx] Gabapentin [Neurontin] 200 mg PO TID PRN #30 cap 10/11/20 [Rx] HYDROcodone/APAP 10-325MG [[place] 10-325] 1 tab PO Q6HR PRN 7 Days #28 tab 10/11/20 [Rx] Ibuprofen [Motrin] 400 mg PO Q8HR PRN #30 tab 10/11/20 [Rx] levETIRAcetam [Keppra] 500 mg PO Q12HR 10/11/20 [History] methocarbamoL [Robaxin] 500 mg PO Q8H PRN 10/11/20 [History] traMADol HCL [Ultram] 50 mg PO Q8HR PRN 3 Days #30 tab 10/11/20 [Rx] Follow up Appointment(s)/Referral(s): Adilia Gayle MD [STAFF PHYSICIAN] - 1 Week (Please call during office hours on Tuesday to make appointment) Patient Instructions/Handouts: Pain Management (DC) Discharge Disposition: HOME SELF-CARE
[2020-10-11] MEDS ORDERED: FAMOTIDINE 20 MG TAB PO SCH (21:00)
[2020-10-11] MEDS ORDERED: NAPROXEN 250 MG TAB PO SCH (21:00)
== END 2020-10-11 13:47 | disposition home or self-care (01) ==
LOC: EC 23:54 → 1SOBS 10-11 01:34
PROVIDERS: ADMIT Hospitalist; ATTEND Hospitalist
DX: S12.9XXD Fracture of neck, unspecified, subsequent encounter (principal); S09.90XD Unspecified injury of head, subsequent encounter; S02.92XD Unspecified fracture of facial bones, subsequent encounter for fracture with routine healing; S02.91XD Unspecified fracture of skull, subsequent encounter for fracture with routine healing; W20.8XXD Other cause of strike by thrown, projected or falling object, subsequent encounter; F17.200 Nicotine dependence, unspecified, uncomplicated; D72.829 Elevated white blood cell count, unspecified; Z79.899 Other long term (current) drug therapy
CPT/HCPCS: 96376; 96361; 96374; 99285; 36415; 93005; 80053; 82550; 83605; 83735; 84100; 84484; 85025; 85610; 85730; 81003; G0378; J1170

== ENCOUNTER → 2020-11-26 | Outpatient (CLI) | payer OTHER ==
--- NOTE | 2020-11-26 11:51 | XR ---
EXAMINATION TYPE: XR cervical spine w flex/ext DATE OF EXAM: 11/26/2020 TECHNIQUE: Frontal, lateral, flexion and extension lateral, oblique, and open mouth view of the cervi michael spine are obtained. HISTORY: [id number] CLOSED NONDISPLACED FX COMPARISON: CT cervical spine October 08, 2020 FINDINGS: The cervical spine is visualized from C1 thru the mid to inferior C7 level, visualized por tion remains satisfactory in alignment . No significant change in alignment nor focal disc space narr owing on dynamic flexion and extension images. The pre-vertebral soft tissue remains within normal li mits. The C1-C2 articulation is within normal limits on the open mouth view. Vertebral body heights and disc space heights are maintained. Suboptimal evaluation of the entire C7 vertebra and C7-T1 dis c space. The oblique images are within normal limits. Overlying clothing material is present. The lef t C7 lamina fracture on CT left well seen on plain films. IMPRESSION: As above.
== END | disposition home or self-care (01) ==
LOC: RADXRYALE 10:53
PROVIDERS: ATTEND Neurological Surgery
DX: S12.601A Unspecified nondisplaced fracture of seventh cervical vertebra, initial encounter for closed fracture (principal)
CPT/HCPCS: 72052

== ENCOUNTER 2020-12-18 21:32 | Emergency (ER) | payer OTHER ==
[2020-12-18] MEDS ORDERED: ONDANSETRON 4 MG/2 ML VIAL IVP STA (22:30)
[2020-12-18] MEDS ORDERED: ASPIRIN 81 MG PO STA (22:30)
[2020-12-18] MEDS ORDERED: MORPHINE SULFATE 4 MG/ML SYRINGE IV STA (22:30)
[2020-12-18 22:45] LABS: Basophils # (A) 0.2 k/uL (0-0.2); Basophils % (A) 1 %; Eosinophils # (A) 0.4 k/uL (0-0.7); Eosinophils % (A) 3 %; HCT 43.3 % (39.0-53.0); HGB 15.3 gm/dL (13.0-17.5); Lymphocytes # (A) 3.1 k/uL (1.0-4.8); Lymphocytes % (A) 22 %; MCH 29.7 pg (25.0-35.0); MCHC 35.3 g/dL (31.0-37.0); MCV 84.2 fL (80.0-100.0); Mean Platelet Volume 7.5; Monocytes # (A) 0.6 k/uL (0-1.0); Monocytes % (A) 4 %; Neutrophils # (A) 9.8 k/uL (1.3-7.7); Neutrophils % (A) 68 %; Platelet Count 250 k/uL (150-450); RBC 5.15 m/uL (4.30-5.90); RDW 12.4 % (11.5-15.5); WBC 14.3 k/uL (3.8-10.6)
[2020-12-18 22:53] LABS: African American GFR (CKD) >90 (>60 ml/min/1.73 sqM); Albumin 4.5 g/dL (3.5-5.0); Anion Gap 12 mmol/L; Calcium 9.5 mg/dL (8.4-10.2); Carbon Dioxide 23 mmol/L (22-30); Chloride 101 mmol/L (98-107); Glucose 123 mg/dL (74-99); Magnesium 1.8 mg/dL (1.6-2.3); Non-African American GFR(CKD) >90 (>60 ml/min/1.73 sqM); Sodium 136 mmol/L (137-145); Total Bilirubin 0.4 mg/dL (0.2-1.3); Total Protein 7.6 g/dL (6.3-8.2)
[2020-12-18 22:58] LABS: ALT 72 U/L (4-49); AST 42 U/L (17-59); Blood Urea Nitrogen 15 mg/dL (9-20); Potassium 4.2 mmol/L (3.5-5.1)
[2020-12-18 22:59] LABS: Alkaline Phosphatase 80 U/L (38-126)
--- NOTE | 2020-12-18 23:05 | XR ---
EXAMINATION TYPE: XR chest 2V DATE OF EXAM: 12/18/2020 COMPARISON: 10/08/2020 HISTORY: Chest pain TECHNIQUE: 2 views FINDINGS: Heart and mediastinum are normal. Lungs are clear. Diaphragm is normal. Bony thorax is norm al. IMPRESSION: Normal chest. There is improved inspiration compared to old exam.
[2020-12-18 23:18] LABS: INR 0.9 (<1.2); Partial Thromboplastin Time 27.4 sec (22.0-30.0); Prothrombin Time 9.6 sec (9.0-12.0)
[2020-12-18] MEDS ORDERED: MORPHINE SULFATE 4 MG/ML SYRINGE IVP STA (23:45)
--- NOTE | 2020-12-18 23:46 | ED ---
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 Patient states the pain has been going on since 1400 today. Patient states the pain has waxed and waned. States it did get worse and he was going up the stairs. He does report trouble breathing when the pain was at its worse. Denies sweats, denies nausea or vomiting. Denies any history of cardiac disease. Denies family history of cardiac disease. Denies any history of hypertension, hyperlipidemia, or diabetes. Denied taking any pain medication for his symptoms. Denies dizziness or weakness. Patient denies any recent rash, fever, chills, cough, abdominal pain, diarrhea, constipation, back pain, numbness, tingling, dizziness, weakness, hematuria, dysuria, urinary urgency, urinary frequency, headache, visual changes, or any other complaints. - Related Data Home Medications Medication Instructions Recorded Confirmed levETIRAcetam [Keppra] 500 mg PO Q12HR 10/11/20 10/11/20 methocarbamoL [Robaxin] 500 mg PO Q8H PRN 10/11/20 10/11/20 Previous Rx's Medication Instructions Recorded Famotidine [Pepcid] 20 mg PO BID #30 tablet 10/11/20 Gabapentin [Neurontin] 200 mg PO TID PRN #30 cap 10/11/20 HYDROcodone/APAP 10-325MG [[place] 1 tab PO Q6HR PRN 7 Days #28 tab 10/11/20 10-325] Ibuprofen [Motrin] 400 mg PO Q8HR PRN #30 tab 10/11/20 traMADol HCL [Ultram] 50 mg PO Q8HR PRN 3 Days #30 tab 10/11/20 Allergies Allergy/AdvReac Type Severity Reaction Status Date / Time No Known Allergies Allergy Verified 12/18/20 22:09 Review of Systems ROS Statement: Those systems with pertinent positive or pertinent negative responses have been documented in the HPI. ROS Other: All systems not noted in ROS Statement are negative. Past Medical History Past Medical History: No Reported History Additional Past Medical History / Comment(s): compressed skull fx. pt was seen here on 10-08-[address] Sanches for a head injury secondary to a tree branch falling on his head. pt was sent to [facility] and was discharged today 10-11-20. History of Any Multi-Drug Resistant Organisms: None Reported Past Surgical History: No Surgical Hx Reported Past Psychological History: No Psychological Hx Reported Smoking Status: Current every day smoker Past Alcohol Use History: Occasional, Rare Past Drug Use History: Marijuana General Exam Limitations: no limitations General appearance: alert, in no apparent distress, other (Physical well- developed, well-nourished adult male patient in no acute distress.) Eye exam: Present: normal appearance, PERRL, EOMI. Absent: scleral icterus, conjunctival injection, periorbital swelling ENT exam: Present: normal exam, normal oropharynx, mucous membranes moist Respiratory exam: Present: normal lung sounds bilaterally. Absent: respiratory distress, wheezes, rales, rhonchi, stridor, chest wall tenderness Cardiovascular Exam: Present: regular rate, normal rhythm, normal heart sounds. Absent: systolic murmur, diastolic murmur, rubs, gallop, clicks GI/Abdominal exam: Present: soft, normal bowel sounds. Absent: distended, tenderness, guarding, rebound, rigid Neurological exam: Present: alert, oriented X3, CN II-XII intact Psychiatric exam: Present: normal affect, normal mood Skin exam: Present: warm, dry, intact, normal color. Absent: rash Course Vital Signs 12/18/20 12/18/20 12/18/20 22:01 22:06 22:30 Temperature 98.5 F Pulse Rate 97 97 Pulse Rate [ Tie Presser ] Respiratory 19 20 11 L Rate Blood Pressure 110/73 121/82 O2 Sat by Pulse 99 98 Oximetry 12/18/20 12/18/20 12/18/20 22:38 23:00 23:30 Temperature Pulse Rate 93 Pulse Rate [ 91 Tie Presser ] Respiratory 16 13 Rate Blood Pressure 108/69 O2 Sat by Pulse Oximetry 12/19/20 00:03 Temperature 97.2 F L Pulse Rate 92 Pulse Rate [ Tie Presser ] Respiratory 16 Rate Blood Pressure 110/68 O2 Sat by Pulse 98 Oximetry EKG Findings - EKG Comments: EKG Findings:: EKG obtained at 2157 shows normal sinus rhythm with early repolarization, ventricular rate of 92, DC interval 134, QRS duration 94, QT 334, QTC 413. There are diffuse ST elevations noted felt to be related to early repolarization rather than clinically significant. Medical Decision Making - Medical Decision Making 35-year-old male patient presenting to the emergency department today for evaluation of substernal chest pain. Denies radiation through to his back. Does report some shortness of breath. Physical examination reveals clear equal lung sounds. Pain is not reproducible. Labs reviewed and did reveal elevated white blood cell count of 14.3. Troponin is negative. Patient has no symptoms, signs, or risk factors for DVT. Chest x-ray shows no acute cardiopulmonary process. EKG showed normal sinus rhythm with early repolarization with diffuse mild ST elevation. Patient will be discharged home to follow-up with his primary care physician for recheck in 1-2 days. He is instructed to discuss possible stress test outpatient. Return parameters were discussed in detail. He verbalizes understanding and agrees with this plan. - Lab Data Result diagrams: 12/18/20 22:36 12/18/20 22:36 Lab Results 12/18/20 12/18/20 12/18/20 Range/Units 22:36 22:36 22:36 WBC 14.3 H (3.8-10.6) k/uL RBC 5.15 (4.30-5.90) m/uL Hgb 15.3 (13.0-17.5) gm/dL Hct 43.3 (39.0-53.0) % MCV 84.2 (80.0-100.0) fL MCH 29.7 (25.0-35.0) pg MCHC 35.3 (31.0-37.0) g/dL RDW 12.4 (11.5-15.5) % Plt Count 250 (150-450) k/uL MPV 7.5 Neutrophils % 68 % Lymphocytes % 22 % Monocytes % 4 % Eosinophils % 3 % Basophils % 1 % Neutrophils # 9.8 H (1.3-7.7) k/uL Lymphocytes # 3.1 (1.0-4.8) k/uL Monocytes # 0.6 (0-1.0) k/uL Eosinophils # 0.4 (0-0.7) k/uL Basophils # 0.2 (0-0.2) k/uL PT 9.6 (9.0-12.0) sec INR 0.9 (<1.2) APTT 27.4 (22.0-30.0) sec Sodium 136 L (137-145) mmol/L Potassium 4.2 (3.5-5.1) mmol/L Chloride 101 (98-107) mmol/L Carbon Dioxide 23 (22-30) mmol/L Anion Gap 12 mmol/L BUN 15 (9-20) mg/dL Creatinine 0.75 (0.66-1.25) mg/dL Est GFR (CKD-EPI)AfAm >90 (>60 ml/min/1.73 sqM) Est GFR (CKD-EPI)NonAf >90 (>60 ml/min/1.73 sqM) Glucose 123 H (74-99) mg/dL Calcium 9.5 (8.4-10.2) mg/dL Magnesium 1.8 (1.6-2.3) mg/dL Total Bilirubin 0.4 (0.2-1.3) mg/dL AST 42 (17-59) U/L ALT 72 H (4-49) U/L Alkaline Phosphatase 80 (38-126) U/L Troponin I (0.000-0.034) ng/mL Total Protein 7.6 (6.3-8.2) g/dL Albumin 4.5 (3.5-5.0) g/dL 12/18/20 Range/Units 22:36 WBC (3.8-10.6) k/uL RBC (4.30-5.90) m/uL Hgb (13.0-17.5) gm/dL Hct (39.0-53.0) % MCV (80.0-100.0) fL MCH (25.0-35.0) pg MCHC (31.0-37.0) g/dL RDW (11.5-15.5) % Plt Count (150-450) k/uL MPV Neutrophils % % Lymphocytes % % Monocytes % % Eosinophils % % Basophils % % Neutrophils # (1.3-7.7) k/uL Lymphocytes # (1.0-4.8) k/uL Monocytes # (0-1.0) k/uL Eosinophils # (0-0.7) k/uL Basophils # (0-0.2) k/uL PT (9.0-12.0) sec INR (<1.2) APTT (22.0-30.0) sec Sodium (137-145) mmol/L Potassium (3.5-5.1) mmol/L Chloride (98-107) mmol/L Carbon Dioxide (22-30) mmol/L Anion Gap mmol/L BUN (9-20) mg/dL Creatinine (0.66-1.25) mg/dL Est GFR (CKD-EPI)AfAm (>60 ml/min/1.73 sqM) Est GFR (CKD-EPI)NonAf (>60 ml/min/1.73 sqM) Glucose (74-99) mg/dL Calcium (8.4-10.2) mg/dL Magnesium (1.6-2.3) mg/dL Total Bilirubin (0.2-1.3) mg/dL AST (17-59) U/L ALT (4-49) U/L Alkaline Phosphatase (38-126) U/L Troponin I <0.012 (0.000-0.034) ng/mL Total Protein (6.3-8.2) g/dL Albumin (3.5-5.0) g/dL - Radiology Data Radiology results: report reviewed, image reviewed Two-view x-ray of the chest is obtained. Report was reviewed in its entirety. Impression by Dr. Anthony shows normal chest. There is improved inspiration compared to old exam. Disposition Clinical Impression: Chest pain Disposition: HOME SELF-CARE Condition: Good Instructions (If sedation given, give patient instructions): Chest Pain (ED) Additional Instructions: Follow-up with your primary care physician for recheck as soon as possible. Discuss possible stress testing. Return to the emergency department for any new, worsening, or concerning symptoms. Is patient prescribed a controlled substance at d/c from ED?: No Referrals: Vincent Ferraro MD [Primary Care Provider] - 1-2 days Time of Disposition: 23:46
[2020-12-19 00:04] VITALS: BP 110/68; PULSE 92; RESP 16; TEMP 97.2
== END 2020-12-19 00:03 | disposition home or self-care (01) ==
LOC: EC 21:32
DX: R07.9 Chest pain, unspecified (principal); F17.200 Nicotine dependence, unspecified, uncomplicated; Z79.899 Other long term (current) drug therapy
CPT/HCPCS: 36415; 93005; 80053; 83735; 84484; 85025; 85610; 85730; 71046; 99285; 96374; 96375; 96376; J2270; J2405

== ENCOUNTER → 2021-07-28 | Outpatient (CLI) | payer OTHER ==
--- NOTE | 2021-07-28 15:13 | XR ---
EXAMINATION TYPE: XR ankle complete LT DATE OF EXAM: 07/28/2021 COMPARISON: None HISTORY: Ankle pain post injury TECHNIQUE: 3 view left ankle FINDINGS: Ankle mortise is intact. Mild soft tissue swelling over the lateral meniscus is present. No acute fracture or dislocation is evident. Follow-up exam 7-10 days from acute trauma for continued pain can be performed. IMPRESSION: 1. Normal three-view left ankle
== END | disposition home or self-care (01) ==
LOC: RADXRYALE 13:25
PROVIDERS: ATTEND Nurse Practitioner Family
DX: M25.572 Pain in left ankle and joints of left foot (principal)